=== PATIENT | male | born 1985 | race Caucasian/White ===

== ENCOUNTER → 2024-07-29 | Outpatient (CLI) | payer MEDICARE, MEDICAID | LOC: M RAD 07:54 | PROVIDERS: ATTEND Psychiatry & Neurology Neurology | DX: G40.309 Generalized idiopathic epilepsy and epileptic syndromes, not intractable, without status epilepticus (principal); F72 Severe intellectual disabilities; D21.4 Benign neoplasm of connective and other soft tissue of abdomen; M62.81 Muscle weakness (generalized) | CPT/HCPCS: 70450; 73502; 73560; 73610; 74170; Q9967 ==

== ENCOUNTER → 2024-07-29 | Outpatient (CLI) | payer MEDICARE, MEDICAID ==
[~2024-07-29] MED LIST: ISOVUE-370 76% 100ML VIAL As Ordered ONE
== END ==
LOC: M RAD 07:57
PROVIDERS: ATTEND Physician Assistant
DX: M62.81 Muscle weakness (generalized) (principal)